=== PATIENT | female | born 1940 | race Caucasian/White ===

== ENCOUNTER 2023-02-22 10:20 | Outpatient (CLI) | payer MEDICARE ==
[2023-02-22 12:35] LABS: Hematocrit 41.3 % (34.9-44.5); Hemoglobin 13.4 g/dL (12.0-15.5)
[2023-02-22 12:40] LABS: Anion Gap 16 mmol/L (10-20); BUN (Urea Nitrogen) 19 mg/dL (9.8-20.1); Calc. Creatinine Clearance 0 mL/min (70-130); Calcium 9.9 mg/dL (7.8-10.44); Carbon Dioxide 24 mmol/L (23-31); Chloride 105 mmol/L (98-107); Estimated GFR 71; Glucose 93 mg/dL (83-110); Potassium 4.7 mmol/L (3.5-5.1); Sodium 140 mmol/L (136-145)
== END 2023-02-22 10:21 | disposition home or self-care (01) ==
LOC: CSHLAB 10:20
PROVIDERS: ATTEND Otolaryngology Plastic Surgery within the Head & Neck
DX: Z01.818 Encounter for other preprocedural examination (principal); H90.71 Mixed conductive and sensorineural hearing loss, unilateral, right ear, with unrestricted hearing on the contralateral side
CPT/HCPCS: 80048; 85014; 85018; 93005; 93010

== ENCOUNTER → 2023-03-01 | Day surgery (SDC) | payer MEDICARE ==
[2023-02-22 11:44] VITALS: BMI 21.7
[~2023-03-01] MED LIST: Dexamethasone 20 MG/5 ML VIAL ONE; Dexmedetomidine 200 MCG/2 ML VIAL ONE; Lidocaine 4% Topical Sol 50 ML BOT ONE; Midazolam HCl 2 mg/2 ml Vial ONE; Mupirocin 2% Ointment 22 GM Tube ONE; Ondansetron PF 4 MG/2 ML Vial ONE; PROPOFOL 0 ML ONE; Rocuronium Bromide 10 MG/ML (10ML VIAL) ONE; SUGAMMADEX SODIUM 200 MG/2 ML VIAL ONE; fentaNYL 50 mcg/mL 1 mL Vial ONE
== END ==
LOC: CSHSDC 05:48
PROVIDERS: ATTEND Otolaryngology Plastic Surgery within the Head & Neck
DX: H90.71 Mixed conductive and sensorineural hearing loss, unilateral, right ear, with unrestricted hearing on the contralateral side (principal); E03.9 Hypothyroidism, unspecified; Z79.890 Hormone replacement therapy; Z53.8 Procedure and treatment not carried out for other reasons
CPT/HCPCS: J1100; J2250; J2405; J2704; J3010

== ENCOUNTER → 2023-03-04 | Day surgery (SDC) | payer MEDICARE ==
[~2023-03-04] MED LIST changes: +Acetaminophen 500 MG TAB ONE; +CEFAZOLIN 2 GM VIAL ONE; -Dexmedetomidine 200 MCG/2 ML VIAL ONE; +Glycopyrrolate 0.2 MG/ML 5 ML SYRINGE ONE; +Lidocaine 1% w/Epinephrine 1:100K 30 ML VIAL ONE; +Lidocaine 2% PF 5 ML VIAL ONE; -Lidocaine 4% Topical Sol 50 ML BOT ONE; +PHENYLEPHRINE-NS 100 MCG/ML 10 ML SYRINGE ONE; -PROPOFOL 0 ML ONE; +PROPOFOL 20 ML ONE; -Rocuronium Bromide 10 MG/ML (10ML VIAL) ONE; -SUGAMMADEX SODIUM 200 MG/2 ML VIAL ONE; +ePHEDrine Sulfate 50 MG/10 ML VIAL ONE
== END ==
LOC: CSHSDC/OP 06:44
PROVIDERS: ATTEND Otolaryngology Plastic Surgery within the Head & Neck
PROC: 0NH Head and Facial Bones, Insertion (ICD-10-PCS; principal; 2023-03-04)
DX: H90.71 Mixed conductive and sensorineural hearing loss, unilateral, right ear, with unrestricted hearing on the contralateral side (principal); E03.9 Hypothyroidism, unspecified; Z90.710 Acquired absence of both cervix and uterus
CPT/HCPCS: 69710; J3010; L8690 ×2; L8691; Q9968; J1100; J2001; J2250; J2405; J2704